=== PATIENT | female | born 1955 | race Caucasian/White ===

== ENCOUNTER 2017-12-01 10:13 | Inpatient (IN) | payer OTHER ==
[~2017-12-01 10:13] MED LIST: Acetaminophen 325 MG Tab PO SCH; Bisacodyl 5 MG Tab PO PRN; Cyclobenzaprine 10 MG Tab PO PRN; HYDROmorphone 0.5 MG/0.5 ML Syringe IVPUSH PRN; Ketorolac 15 MG/ML SDV IVPUSH PRN; Lactated Ringers 1,000 ML IV SCH; Lidocaine 1%/Sod Bicarbonate in NS 8.4% 1 ML Syringe IDERM PRN; Magnesium Hydroxide 400 MG/5 ML Susp 30 ML Cup PO PRN; Naloxone 0.4 MG/ML SDV IVPUSH PRN; Ondansetron 4 MG/2 ML SDV IVPUSH PRN; Pregabalin 25 MG Cap PO SCH; Sennosides 8.6 MG Tab PO PRN; Sodium Chloride 0.9% 10 ML Syringe FLUSH PRN; oxyCODONE ER 10 MG TAB.ER PO SCH
[2017-12-01] MEDS ORDERED: oxyCODONE ER 10 MG TAB.ER PO SCH (10:30)
[2017-12-01] MEDS ORDERED: Pregabalin 25 MG Cap PO SCH (10:30)
[2017-12-01] MEDS ORDERED: Acetaminophen 325 MG Tab PO SCH (10:30)
[2017-12-01] MEDS ORDERED: Midazolam 1 MG/ML 2 ML SDV ONE ×2 (11:08→14:38)
[2017-12-01] MEDS ORDERED: Lidocaine 1% 0 ML ONE ×2 (11:08→11:10)
[2017-12-01] MEDS ORDERED: Bupivacaine 0.75% 30 ML SDV ONE (11:08)
[2017-12-01] MEDS ORDERED: Propofol 200 MG/20 ML SDV ONE ×3 (11:08→16:15)
[2017-12-01] MEDS ORDERED: ceFAZolin 1 GM Vial ONE ×2 (12:14→14:37)
[2017-12-01] MEDS ORDERED: Iodine/Sodium Iodide 2% Tincture 30 ML Bottle ONE (12:14)
--- NOTE | 2017-12-01 12:14 | PCM.PREANE ---
Preanesthetic Assessment - Anesthesia/Transfusion/Family Hx Anesthesia History: Prior Anesthesia Without Reaction Family History of Anesthesia Reaction: No Transfusion History: No Prior Transfusion(s) - Review of Systems General: Other (chronic sinus drainage) Pulmonary: Other (smoker) Gastrointestinal: No Symptoms Neurological: No Symptoms, Numbness (left 2 middle fingers in winter months) - Physical Assessment NPO Status Date: 11/30/17 NPO Status Time: 23:00 Pulse: 70 O2 Sat by Pulse Oximetry: 98 Respiratory Rate: 16 Blood Pressure: 135/90 Vital Signs: Last Vital Signs Temp 37.0 C 12/01/17 10:20 Pulse 70 12/01/17 10:20 Resp 16 12/01/17 10:20 BP 135/90 12/01/17 10:20 Pulse Ox 98 12/01/17 10:20 Height: 1.55 m Weight: 53.524 kg ASA Class: 2 Airway Class: Mallampati = 2 Dentition: Reports: Normal Dentition Thyro-Mental Finger Breadths: 3 Mouth Opening Finger Breadths: 3 ROM/Head Extension: Full Lungs: Clear to Auscultation, Normal Respiratory Effort Cardiovascular: Regular Rate, Regular Rhythm - Lab Values: Laboratory Last Values MRSA (PCR) TNP 11/07/17 12:04 Blood Type A POSITIVE 12/01/17 10:51 Gel Antibody Screen Negative 12/01/17 10:51 - Allergies Allergies/Adverse Reactions: Allergies Allergy/AdvReac Type Severity Reaction Status Date / Time brompheniramine Allergy Tachycardia Verified 11/27/17 13:56 [From Dimetapp (brompheniramine-PPA)] phenylpropanolamine Allergy Tachycardia Verified 11/27/17 13:56 [From Dimetapp (brompheniramine-PPA)] pseudoephedrine Allergy Tachycardia Verified 11/27/17 13:56 [From Sudafed] Sulfa (Sulfonamide Allergy Rash Verified 11/27/17 13:56 Antibiotics) - Blood Blood Available: No Product(s) Available: None - Anesthesia Plan Pre-Op Medication Ordered: None - Acknowledgements Anesthesia Type Planned: Spinal Pt an Appropriate Candidate for the Planned Anesthesia: Yes Alternatives and Risks of Anesthesia Discussed w Pt/Guardian: Yes Pt/Guardian Understands and Agrees with Anesthesia Plan: Yes PreAnesthesia Questionnaire HEENT History: Reports: None Cardiovascular History: Reports: CAD, High Cholesterol Respiratory History: Reports: None Gastrointestinal History: Reports: None Genitourinary History: Reports: None SENIOR CAREGIVER History: Reports: None Musculoskeletal History: Reports: Osteoarthritis Other Musculoskeletal History: Left hip pain, Bilateral broken arms Neurological History: Reports: None Psychiatric History: Reports: None Endocrine/Metabolic History: Reports: Vitamin D Deficiency Hematologic History: Reports: None Immunologic History: Reports: None Oncologic (Cancer) History: Reports: None Dermatologic History: Reports: Other (See Below) Other Dermatologic History: Seborrheic keratosis - Past Surgical History Head Surgeries/Procedures: Reports: Other (See Below) HEENT Surgical History: Reports: Naso-Sinus Surgery Cardiovascular Surgical History: Reports: None Respiratory Surgical History: Reports: None GI Surgical History: Reports: None Female Surgical History: Reports: None Endocrine 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 Tumor Resection Neurological Surgical History: Reports: None Musculoskeletal Surgical History: Reports: Arthroscopic Knee Oncologic Surgical History: Reports: None Dermatological Surgical History: Reports: None - SUBSTANCE USE Smoking Status *Q: Current Every Day Smoker Tobacco Use Within Last Twelve Months: Cigarettes Second Hand Smoke Exposure: No Recreational Drug Use History: No - HOME MEDS Home Medications: Home Meds Acetaminophen [Acetaminophen Extra Strength] 500 mg PO Q6H PRN 11/27/17 [History ] Calcium Carbonate [Oyster Shell Calcium] 500 mg PO BID 11/27/17 [History] Cholecalciferol (Vitamin D3) [Vitamin D3] 5,000 unit PO DAILY 11/27/17 [History] Cyanocobalamin (Vitamin B12) [Vitamin B12] 1,000 mcg PO DAILY 11/27/17 [History] Fish Oil/[place]-3 Fatty Acids [Fish Oil 1,000 MG] 1,000 mg PO BID 11/27/17 [ History] Fluticasone Propionate [Flovent Diskus] 2 spray IH DAILY 11/27/17 [History] Naproxen 500 mg PO BID PRN 11/27/17 [History] Teriparatide [Forteo] 20 unit SUBCUT DAILY 11/27/17 [History] - CURRENT (IN HOUSE) MEDS Current Meds: Current Medications Aspirin (Ecotrin) 325 mg PO BID [facility] Bisacodyl (Dulcolax) 5 mg PO DAILY PRN PRN Reason: Constipation Morphine Sulfate 8 mg/Epinephrine HCl 0.3 mg/Cefuroxime Sodium 750 mg/Ketorolac Tromethamine 30 mg/Sodium Chloride 27.9 ml 0 mg .XX ONETIME ONE Stop: 12/01/17 13:31 Cyclobenzaprine HCl (Flexeril) 10 mg PO TID PRN PRN Reason: Spasms Docusate Sodium (Colace) 100 mg PO BID [facility] Famotidine (Pepcid) 20 mg PO Q12H [facility] Hydromorphone HCl (Dilaudid) 0.2 mg IVPUSH Q2H PRN PRN Reason: breakthrough pain Lactated Ringer's (Ringers, Lactated) 1,000 mls @ 125 mls/hr IV ASDIRECTED [facility] Stop: 12/01/17 23:00 Last Admin: 12/01/17 10:50 Dose: 125 mls/hr Cefazolin Sodium/Dextrose 2 gm (/ Premix) 50 mls @ 100 mls/hr IV Q8H [facility] Stop: 12/01/17 23:44 Ketorolac Tromethamine (Toradol) 15 mg IVPUSH Q6H PRN PRN Reason: Pain Lidocaine/Sodium Bicarbonate (Buffered Lidocaine 1% In Ns 8.4%) 0.25 ml IDERM ONETIME PRN PRN Reason: Prior to IV Start Stop: 12/01/17 18:00 Last Admin: 12/01/17 10:49 Dose: 0.25 ml Magnesium Hydroxide (Milk Of Magnesia) 30 ml PO BID PRN PRN Reason: Constipation Naloxone HCl (Narcan) 0.1 mg IVPUSH Q5M PRN PRN Reason: Oversedation Ondansetron HCl (Zofran) 4 mg IVPUSH Q6H PRN PRN Reason: Nausea/Vomiting Oxycodone/Acetaminophen (Percocet 325-5 Mg) 1 - 2 tab PO Q4H PRN PRN Reason: Pain Senna (Senna) 8.6 mg PO BID PRN PRN Reason: Constipation Sodium Chloride (Saline Flush) 10 ml FLUSH ASDIRECTED PRN PRN Reason: Keep Vein Open Stop: 12/01/17 18:00 Discontinued Medications Acetaminophen (Tylenol) 975 mg PO ONETIME [facility] Stop: 12/01/17 10:31 Acetaminophen (Tylenol) 975 mg PO ONETIME [facility] Stop: 12/01/17 10:31 Bupivacaine HCl (Sensorcaine-Mpf 0.75%) Confirm Administered Dose 30 ml .ROUTE .STK-MED ONE Stop: 12/01/17 11:09 Cefazolin Sodium (Ancef) Confirm Administered Dose 2 gm .ROUTE .STK-MED ONE Stop: 12/01/17 11:11 Lidocaine HCl (Xylocaine-Mpf 1%) Confirm Administered Dose 2 mls @ as directed .ROUTE .STK-MED ONE Stop: 12/01/17 11:09 Lidocaine HCl (Xylocaine-Mpf 1%) Confirm Administered Dose 2 mls @ as directed .ROUTE .STK-MED ONE Stop: 12/01/17 11:11 Midazolam HCl (Versed 1 Mg/Ml) Confirm Administered Dose 2 mg .ROUTE .STK-MED ONE Stop: 12/01/17 11:09 Oxycodone HCl (Oxycontin) 10 mg PO ONETIME [facility] Stop: 12/01/17 10:31 Oxycodone HCl (Oxycontin) 10 mg PO ONETIME [facility] Stop: 12/01/17 10:31 Pregabalin (Lyrica) 50 mg PO ONETIME [facility] Stop: 12/01/17 10:31 Pregabalin (Lyrica) 50 mg PO ONETIME [facility] Stop: 12/01/17 10:31 Propofol (Diprivan 20 Ml) Confirm Administered Dose 600 mg .ROUTE .STK-MED ONE Stop: 12/01/17 11:09
[2017-12-01] MEDS: ceFAZolin 1 GM Vial ONE ×2 (14:38→16:35)
[2017-12-01] MEDS ORDERED: fentaNYL 100 MCG/2 ML SDV ONE (14:38)
[2017-12-01] MEDS: Bupivacaine 0.25% 30 ML SDV ONE ×2 (14:38→16:40)
[2017-12-01] MEDS: Morphine 8 MG, EPINEPHrine 0.3 MG, Cefuroxime 750 MG, Ketorolac 30 MG, Sodium Chloride ... ONE ×10 (14:39→16:39)
[2017-12-01] MEDS: Vancomycin 1 GM SDV ONE ×2 (14:40→16:41)
[2017-12-01] MEDS ORDERED: Ketorolac 30 MG/ML SDV ONE (15:50)
[2017-12-01] MEDS ORDERED: Ondansetron 4 MG/2 ML SDV ONE (15:50)
[2017-12-01] MEDS ORDERED: Meperidine PF 50 MG/ML Syringe IVPUSH PRN (17:13)
[2017-12-01] MEDS ORDERED: fentaNYL 100 MCG/2 ML SDV IVPUSH PRN (17:13)
[2017-12-01] MEDS ORDERED: Ondansetron 4 MG/2 ML SDV IVPUSH PRN (17:13)
--- NOTE | 2017-12-01 17:13 | PCM.POSTAN ---
POST ANESTHESIA ASSESSMENT - MENTAL STATUS Mental Status: Alert, Oriented - VITAL SIGNS Pulse Rate: 64 SaO2: 99 Resp Rate: 18 Blood Pressure: 123/56 Temperature: 36.2 C - RESPIRATORY Respiratory Status: Respiratory Rate WNL, Airway Patent, O2 Saturation Stable - CARDIOVASCULAR CV Status: Pulse Rate WNL, Blood Pressure Stable - GASTROINTESTINAL GI Status: No Symptoms - PAIN Pain Score: 0 - POST OP HYDRATION Hydration Status: Adequate & Stable
--- NOTE | 2017-12-01 17:43 | CR ---
Pelvis and left hip: AP view of the pelvis was obtained as well as lateral view of the left hip. Comparison: No prior pelvis or left hip exam. Left hip prosthesis is seen. Components are aligned. Underlying bony structures are intact. Joint space within the right hip is preserved. Sacroiliac joints appear within normal limits. Calcifications are seen within the pelvis which are compatible with phleboliths. Soft tissue air is noted around the left hip. Impression: 1. Recently placed left hip prosthesis. No additional abnormality is seen other than incidental findings. Diagnostic code #2
[2017-12-01] MEDS ORDERED: ceFAZolin 2 GM in Premix Bag 1 BAG IV SCH (20:15)
[2017-12-01] MEDS: Docusate Sodium 100 MG Cap PO SCH (21:10)
[2017-12-01] MEDS: Calcium Carbonate 500 MG Tab.Chew PO SCH (21:10)
[2017-12-01] MEDS: Famotidine 20 MG Tab PO SCH (21:10)
[2017-12-01] MEDS: ceFAZolin 2 GM in Premix Bag 1 BAG IV SCH (21:30)
[2017-12-01] MEDS: Acetaminophen/oxyCODONE 325-5 MG Tab PO PRN (21:45)
[2017-12-02] MEDS: Docusate Sodium 100 MG Cap PO SCH ×2 (01:28→09:04)
[2017-12-02] MEDS: Morphine 8 MG, EPINEPHrine 0.3 MG, Cefuroxime 750 MG, Ketorolac 30 MG, Sodium Chloride ... ONE ×5 (01:29)
[2017-12-02] MEDS: ceFAZolin 2 GM in Premix Bag 1 BAG IV SCH (06:10)
[2017-12-02] MEDS: Acetaminophen/oxyCODONE 325-5 MG Tab PO PRN (06:11)
--- NOTE | 2017-12-02 07:38 | PCM.CONSN ---
- General Info Date of Service: 12/01/17 Admission Dx/Problem (Free Text): 62 year old female s/p left hip arthroplasty, Day 0; PMH of left hip osteoarthritis. Is a current smoker since 23 years old. Has no complaints post op. medical service has been asked to oversee her medical needs. Functional Status: Reports: Pain Controlled, Tolerating Diet, Urinating - Review of Systems General: Reports: No Symptoms HEENT: Reports: No Symptoms Pulmonary: Reports: No Symptoms Cardiovascular: Reports: No Symptoms Gastrointestinal: Reports: No Symptoms Genitourinary: Reports: No Symptoms Musculoskeletal: Reports: No Symptoms Skin: Reports: No Symptoms Neurological: Reports: No Symptoms, Change in Speech - Patient Data Vitals - Most Recent: Last Vital Signs Temp 36.8 C 12/02/17 04:18 Pulse 60 12/02/17 04:18 Resp 16 12/02/17 04:18 BP 110/49 L 12/02/17 04:18 Pulse Ox 95 12/02/17 04:18 Weight - Most Recent: 56.744 kg I&O - Last 24 Hours: Intake & Output 12/01/17 12/02/17 12/02/17 22:59 06:59 14:59 Intake Total 100 1400 Output Total 250 2125 Balance -150 -725 Lab Results Last 24 Hours: Laboratory Results - last 24 hr 12/01/17 12/02/17 Range/Units 10:51 05:52 WBC 7.39 (3.98-10.04) K/mm3 RBC 3.98 (3.98-5.22) M/mm3 Hgb 12.3 (11.2-15.7) gm/L Hct 37.4 (34.1-44.9) % MCV 94.0 (79.4-94.8) fl MCH 30.9 (25.6-32.2) pg MCHC 32.9 (32.2-35.5) g/dl RDW Std Deviation 47.8 H (36.4-46.3) fL Plt Count 279 (182-369) K/mm3 MPV 9.6 (9.4-12.3) fl Blood Type A POSITIVE Gel Antibody Screen Negative Med Orders - Current: Current Medications Bisacodyl (Dulcolax) 5 mg PO DAILY PRN PRN Reason: Constipation Calcium Carbonate/Glycine (Tums) 500 mg PO BID [facility] Last Admin: 12/01/17 21:10 Dose: 500 mg Cholecalciferol (Vitamin D3) 5,000 unit PO DAILY [facility] Cyanocobalamin (Vitamin B12) 1,000 mcg PO DAILY [facility] Cyclobenzaprine HCl (Flexeril) 10 mg PO TID PRN PRN Reason: Spasms Docusate Sodium (Colace) 100 mg PO BID [facility] Last Admin: 12/02/17 01:28 Dose: Not Given Famotidine (Pepcid) 20 mg PO Q12H [facility] Last Admin: 12/01/17 21:10 Dose: 20 mg Hydromorphone HCl (Dilaudid) 0.2 mg IVPUSH Q2H PRN PRN Reason: breakthrough pain Cefazolin Sodium/Dextrose 2 gm (/ Premix) 50 mls @ 100 mls/hr IV Q8H [facility] Stop: 12/02/17 14:29 Last Admin: 12/02/17 06:10 Dose: 100 mls/hr Ketorolac Tromethamine (Toradol) 15 mg IVPUSH Q6H PRN PRN Reason: Pain Magnesium Hydroxide (Milk Of Magnesia) 30 ml PO BID PRN PRN Reason: Constipation Mometasone Furoate (Asmanex Hfa 200mcg) 0 gm INH BID [facility] Ondansetron HCl (Zofran) 4 mg IVPUSH Q6H PRN PRN Reason: Nausea/Vomiting Ondansetron HCl (Zofran) 4 mg IVPUSH ONETIME PRN PRN Reason: Nausea/Vomiting Oxycodone/Acetaminophen (Percocet 325-5 Mg) 1 - 2 tab PO Q4H PRN PRN Reason: Pain Last Admin: 12/02/17 06:11 Dose: 2 tab Rivaroxaban (Xarelto) 10 mg PO DAILY [facility] Senna (Senna) 8.6 mg PO BID PRN PRN Reason: Constipation Discontinued Medications Acetaminophen (Tylenol) 975 mg PO ONETIME [facility] Stop: 12/01/17 10:31 Last Admin: 12/01/17 14:54 Dose: 975 mg Acetaminophen (Tylenol) 975 mg PO ONETIME [facility] Stop: 12/01/17 10:31 Aspirin (Ecotrin) 325 mg PO BID [facility] Bupivacaine HCl (Sensorcaine-Mpf 0.75%) Confirm Administered Dose 30 ml .ROUTE .STK-MED ONE Stop: 12/01/17 11:09 Bupivacaine HCl (Marcaine 0.25%) Confirm Administered Dose 30 ml .ROUTE .STK- MED ONE Stop: 12/01/17 12:15 Last Admin: 12/01/17 16:40 Dose: 30 ml Cefazolin Sodium (Ancef) Confirm Administered Dose 2 gm .ROUTE .STK-MED ONE Stop: 12/01/17 11:11 Last Admin: 12/01/17 16:35 Dose: 2 gm Cefazolin Sodium (Ancef) Confirm Administered Dose 2 gm .ROUTE .STK-MED ONE Stop: 12/01/17 12:15 Cefazolin Sodium (Ancef) Confirm Administered Dose 2 gm .ROUTE .STK-MED ONE Stop: 12/01/17 14:38 Morphine Sulfate 8 mg/Epinephrine HCl 0.3 mg/Cefuroxime Sodium 750 mg/Ketorolac Tromethamine 30 mg/Sodium Chloride 27.9 ml 0 mg .XX ONETIME ONE Stop: 12/01/17 13:31 Last Admin: 12/02/17 01:29 Dose: Not Given Fentanyl (Sublimaze) Confirm Administered Dose 100 mcg .ROUTE .STK-MED ONE Stop: 12/01/17 14:39 Fentanyl (Sublimaze) 50 mcg IVPUSH Q5M PRN PRN Reason: Pain Lactated Ringer's (Ringers, Lactated) 1,000 mls @ 125 mls/hr IV ASDIRECTED [facility] Stop: 12/01/17 23:00 Last Admin: 12/01/17 10:50 Dose: 125 mls/hr Cefazolin Sodium/Dextrose 2 gm (/ Premix) 50 mls @ 100 mls/hr IV Q8H [facility] Stop: 12/02/17 12:44 Last Admin: 12/02/17 01:31 Dose: Not Given Lidocaine HCl (Xylocaine-Mpf 1%) Confirm Administered Dose 0 mls @ as directed .ROUTE .STK-MED ONE Stop: 12/01/17 11:09 Lidocaine HCl (Xylocaine-Mpf 1%) Confirm Administered Dose 0 mls @ as directed .ROUTE .STK-MED ONE Stop: 12/01/17 11:11 Iodine (Iodine 2% Mild Tincture) Confirm Administered Dose 30 ml .ROUTE .STK- MED ONE Stop: 12/01/17 12:15 Last Admin: 12/01/17 16:31 Dose: 18 ml Ketorolac Tromethamine (Toradol) Confirm Administered Dose 30 mg .ROUTE .STK- MED ONE Stop: 12/01/17 15:51 Lidocaine/Sodium Bicarbonate (Buffered Lidocaine 1% In Ns 8.4%) 0.25 ml IDERM ONETIME PRN PRN Reason: Prior to IV Start Stop: 12/01/17 18:00 Last Admin: 12/01/17 10:49 Dose: 0.25 ml Meperidine HCl (Demerol) 12.5 mg IVPUSH ONETIME PRN PRN Reason: Shivering Midazolam HCl (Versed 1 Mg/Ml) Confirm Administered Dose 2 mg .ROUTE .STK-MED ONE Stop: 12/01/17 11:09 Midazolam HCl (Versed 1 Mg/Ml) Confirm Administered Dose 2 mg .ROUTE .STK-MED ONE Stop: 12/01/17 14:39 Naloxone HCl (Narcan) 0.1 mg IVPUSH Q5M PRN PRN Reason: Oversedation Non-Formulary Medication (Teriparatide [Forteo]) 20 unit SUBCUT DAILY [facility] Ondansetron HCl (Zofran) Confirm Administered Dose 4 mg .ROUTE .STK-MED ONE Stop: 12/01/17 15:51 Oxycodone HCl (Oxycontin) 10 mg PO ONETIME [facility] Stop: 12/01/17 10:31 Last Admin: 12/01/17 14:54 Dose: 10 mg Oxycodone HCl (Oxycontin) 10 mg PO ONETIME [facility] Stop: 12/01/17 10:31 Pregabalin (Lyrica) 50 mg PO ONETIME [facility] Stop: 12/01/17 10:31 Last Admin: 12/01/17 14:53 Dose: 50 mg Pregabalin (Lyrica) 50 mg PO ONETIME [facility] Stop: 12/01/17 10:31 Propofol (Diprivan 20 Ml) Confirm Administered Dose 600 mg .ROUTE .STK-MED ONE Stop: 12/01/17 11:09 Propofol (Diprivan 20 Ml) Confirm Administered Dose 400 mg .ROUTE .STK-MED ONE Stop: 12/01/17 14:38 Propofol (Diprivan 20 Ml) Confirm Administered Dose 200 mg .ROUTE .STK-MED ONE Stop: 12/01/17 16:16 Sodium Chloride (Saline Flush) 10 ml FLUSH ASDIRECTED PRN PRN Reason: Keep Vein Open Stop: 12/01/17 18:00 Tranexamic Acid (Cyklokapron) Confirm Administered Dose 1,000 mg .ROUTE .STK- MED ONE Stop: 12/01/17 12:15 Last Admin: 12/01/17 16:41 Dose: 1,000 mg Vancomycin HCl (Vancomycin) Confirm Administered Dose 1 gm .ROUTE .STK-MED ONE Stop: 12/01/17 12:15 Last Admin: 12/01/17 16:41 Dose: 1 gm - Exam Quality Assessment: Urine Catheter, DVT Prophylaxis General: Alert, Oriented, Cooperative, No Acute Distress HEENT: Pupils Equal, Pupils Reactive, EOMI Neck: Trachea Midline, No JVD Lungs: Clear to Auscultation, Normal Respiratory Effort Cardiovascular: Regular Rate, Regular Rhythm GI/Abdominal Exam: Normal Bowel Sounds, Soft, Non-Tender, No Organomegaly, No Distention (Female) Exam: Deferred Back Exam: Normal Inspection Extremities: Normal Inspection, Normal Capillary Refill Skin: Warm, Dry Wound/Incisions: Dressing Dry and Intact Neurological: No New Focal Deficit Psy/Mental Status: Alert, Normal Affect, Normal Mood Consult PN Assessment/Plan Procedures: Procedures DXA BONE DENSITY AXIAL (08/26/17) MR-STAPH DNA AMP PROBE (08/26/17) Problem List Initiated/Reviewed/Updated: Yes Plan: Impression: S/P left hip arthroplasty; POD 0 Current smoker Chronic S/p Pituitary resection HLD CAD Vitamin D deficiency Plan: Daily labs Home meds Pain control per primary service DVT prophylaxis Consult post op PT/OT DC 24-48 hours Time spent 20 minutes
[2017-12-02] MEDS: Mometasone Furoate HFA 200 mcg/Puff 13 GM Inhaler INH SCH ×2 (08:01→10:28)
--- NOTE | 2017-12-02 08:41 | PCM.SURGPN ---
- General Info Date of Service: 12/02/17 POD#: 1 Functional Status: Reports: Pain Controlled, Tolerating Diet, Ambulating, Urinating, Incentive Spirometry, Other (The pt states she is doing well.) - Patient Data Vitals - Most Recent: Last Vital Signs Temp 98.2 F 12/02/17 04:18 Pulse 60 12/02/17 04:18 Resp 16 12/02/17 04:18 BP 110/49 L 12/02/17 04:18 Pulse Ox 95 12/02/17 04:18 Weight - Most Recent: 125 lb 1.6 oz I&O - Last 24 Hours: Intake & Output 12/01/17 12/02/17 12/02/17 22:59 06:59 14:59 Intake Total 340 1400 Output Total 250 2125 Balance 90 -725 Lab Results Last 24 Hrs: Laboratory Results - last 24 hr 12/01/17 12/02/17 12/02/17 Range/Units 10:51 05:52 05:52 WBC 7.39 (3.98-10.04) K/mm3 RBC 3.98 (3.98-5.22) M/mm3 Hgb 12.3 (11.2-15.7) gm/L Hct 37.4 (34.1-44.9) % MCV 94.0 (79.4-94.8) fl MCH 30.9 (25.6-32.2) pg MCHC 32.9 (32.2-35.5) g/dl RDW Std Deviation 47.8 H (36.4-46.3) fL Plt Count 279 (182-369) K/mm3 MPV 9.6 (9.4-12.3) fl Sodium 141 (136-145) mEq/L Potassium 4.0 (3.5-5.1) mEq/L Chloride 107 (98-107) mEq/L Carbon Dioxide 28 (21-32) mEq/L Anion Gap 10.0 (5-15) BUN 13 (7-18) mg/dL Creatinine 1.0 (0.55-1.02) mg/dL Est Cr Clr Drug Dosing 44.02 mL/min Estimated GFR (MDRD) 56 (>60) mL/min BUN/Creatinine Ratio 13.0 L (14-18) Glucose 101 (80-115) mg/dL Calcium 8.9 (8.5-10.1) mg/dL Total Bilirubin 0.4 (0.2-1.0) mg/dL AST 20 (15-37) U/L ALT 22 (14-59) U/L Alkaline Phosphatase 77 (46-116) U/L Total Protein 5.5 L (6.4-8.2) g/dl Albumin 3.0 L (3.4-5.0) g/dl Globulin 2.5 gm/dL Albumin/Globulin Ratio 1.2 (1-2) Blood Type A POSITIVE Gel Antibody Screen Negative Med Orders - Current: Current Medications Bisacodyl (Dulcolax) 5 mg PO DAILY PRN PRN Reason: Constipation Calcium Carbonate/Glycine (Tums) 500 mg PO BID [facility] Last Admin: 12/01/17 21:10 Dose: 500 mg Cholecalciferol (Vitamin D3) 5,000 unit PO DAILY [facility] Cyanocobalamin (Vitamin B12) 1,000 mcg PO DAILY [facility] Cyclobenzaprine HCl (Flexeril) 10 mg PO TID PRN PRN Reason: Spasms Docusate Sodium (Colace) 100 mg PO BID [facility] Last Admin: 12/02/17 01:28 Dose: Not Given Famotidine (Pepcid) 20 mg PO Q12H [facility] Last Admin: 12/01/17 21:10 Dose: 20 mg Hydromorphone HCl (Dilaudid) 0.2 mg IVPUSH Q2H PRN PRN Reason: breakthrough pain Cefazolin Sodium/Dextrose 2 gm (/ Premix) 50 mls @ 100 mls/hr IV Q8H [facility] Stop: 12/02/17 14:29 Last Admin: 12/02/17 06:10 Dose: 100 mls/hr Ketorolac Tromethamine (Toradol) 15 mg IVPUSH Q6H PRN PRN Reason: Pain Magnesium Hydroxide (Milk Of Magnesia) 30 ml PO BID PRN PRN Reason: Constipation Mometasone Furoate (Asmanex Hfa 200mcg) 0 gm INH BID [facility] Last Admin: 12/02/17 08:01 Dose: Not Given Ondansetron HCl (Zofran) 4 mg IVPUSH Q6H PRN PRN Reason: Nausea/Vomiting Ondansetron HCl (Zofran) 4 mg IVPUSH ONETIME PRN PRN Reason: Nausea/Vomiting Oxycodone/Acetaminophen (Percocet 325-5 Mg) 1 - 2 tab PO Q4H PRN PRN Reason: Pain Last Admin: 12/02/17 06:11 Dose: 2 tab Rivaroxaban (Xarelto) 10 mg PO DAILY [facility] Senna (Senna) 8.6 mg PO BID PRN PRN Reason: Constipation Discontinued Medications Acetaminophen (Tylenol) 975 mg PO ONETIME [facility] Stop: 12/01/17 10:31 Last Admin: 12/01/17 14:54 Dose: 975 mg Acetaminophen (Tylenol) 975 mg PO ONETIME [facility] Stop: 12/01/17 10:31 Aspirin (Ecotrin) 325 mg PO BID [facility] Bupivacaine HCl (Sensorcaine-Mpf 0.75%) Confirm Administered Dose 30 ml .ROUTE .STK-MED ONE Stop: 12/01/17 11:09 Bupivacaine HCl (Marcaine 0.25%) Confirm Administered Dose 30 ml .ROUTE .STK- MED ONE Stop: 12/01/17 12:15 Last Admin: 12/01/17 16:40 Dose: 30 ml Cefazolin Sodium (Ancef) Confirm Administered Dose 2 gm .ROUTE .STK-MED ONE Stop: 12/01/17 11:11 Last Admin: 12/01/17 16:35 Dose: 2 gm Cefazolin Sodium (Ancef) Confirm Administered Dose 2 gm .ROUTE .STK-MED ONE Stop: 12/01/17 12:15 Cefazolin Sodium (Ancef) Confirm Administered Dose 2 gm .ROUTE .STK-MED ONE Stop: 12/01/17 14:38 Morphine Sulfate 8 mg/Epinephrine HCl 0.3 mg/Cefuroxime Sodium 750 mg/Ketorolac Tromethamine 30 mg/Sodium Chloride 27.9 ml 0 mg .XX ONETIME ONE Stop: 12/01/17 13:31 Last Admin: 12/02/17 01:29 Dose: Not Given Fentanyl (Sublimaze) Confirm Administered Dose 100 mcg .ROUTE .STK-MED ONE Stop: 12/01/17 14:39 Fentanyl (Sublimaze) 50 mcg IVPUSH Q5M PRN PRN Reason: Pain Lactated Ringer's (Ringers, Lactated) 1,000 mls @ 125 mls/hr IV ASDIRECTED [facility] Stop: 12/01/17 23:00 Last Admin: 12/01/17 10:50 Dose: 125 mls/hr Cefazolin Sodium/Dextrose 2 gm (/ Premix) 50 mls @ 100 mls/hr IV Q8H [facility] Stop: 12/02/17 12:44 Last Admin: 12/02/17 01:31 Dose: Not Given Lidocaine HCl (Xylocaine-Mpf 1%) Confirm Administered Dose 0 mls @ as directed .ROUTE .STK-MED ONE Stop: 12/01/17 11:09 Lidocaine HCl (Xylocaine-Mpf 1%) Confirm Administered Dose 0 mls @ as directed .ROUTE .STK-MED ONE Stop: 12/01/17 11:11 Iodine (Iodine 2% Mild Tincture) Confirm Administered Dose 30 ml .ROUTE .STK- MED ONE Stop: 12/01/17 12:15 Last Admin: 12/01/17 16:31 Dose: 18 ml Ketorolac Tromethamine (Toradol) Confirm Administered Dose 30 mg .ROUTE .STK- MED ONE Stop: 12/01/17 15:51 Lidocaine/Sodium Bicarbonate (Buffered Lidocaine 1% In Ns 8.4%) 0.25 ml IDERM ONETIME PRN PRN Reason: Prior to IV Start Stop: 12/01/17 18:00 Last Admin: 12/01/17 10:49 Dose: 0.25 ml Meperidine HCl (Demerol) 12.5 mg IVPUSH ONETIME PRN PRN Reason: Shivering Midazolam HCl (Versed 1 Mg/Ml) Confirm Administered Dose 2 mg .ROUTE .STK-MED ONE Stop: 12/01/17 11:09 Midazolam HCl (Versed 1 Mg/Ml) Confirm Administered Dose 2 mg .ROUTE .STK-MED ONE Stop: 12/01/17 14:39 Naloxone HCl (Narcan) 0.1 mg IVPUSH Q5M PRN PRN Reason: Oversedation Non-Formulary Medication (Teriparatide [Forteo]) 20 unit SUBCUT DAILY [facility] Ondansetron HCl (Zofran) Confirm Administered Dose 4 mg .ROUTE .STK-MED ONE Stop: 12/01/17 15:51 Oxycodone HCl (Oxycontin) 10 mg PO ONETIME [facility] Stop: 12/01/17 10:31 Last Admin: 12/01/17 14:54 Dose: 10 mg Oxycodone HCl (Oxycontin) 10 mg PO ONETIME [facility] Stop: 12/01/17 10:31 Pregabalin (Lyrica) 50 mg PO ONETIME [facility] Stop: 12/01/17 10:31 Last Admin: 12/01/17 14:53 Dose: 50 mg Pregabalin (Lyrica) 50 mg PO ONETIME [facility] Stop: 12/01/17 10:31 Propofol (Diprivan 20 Ml) Confirm Administered Dose 600 mg .ROUTE .STK-MED ONE Stop: 12/01/17 11:09 Propofol (Diprivan 20 Ml) Confirm Administered Dose 400 mg .ROUTE .STK-MED ONE Stop: 12/01/17 14:38 Propofol (Diprivan 20 Ml) Confirm Administered Dose 200 mg .ROUTE .STK-MED ONE Stop: 12/01/17 16:16 Sodium Chloride (Saline Flush) 10 ml FLUSH ASDIRECTED PRN PRN Reason: Keep Vein Open Stop: 12/01/17 18:00 Tranexamic Acid (Cyklokapron) Confirm Administered Dose 1,000 mg .ROUTE .STK- MED ONE Stop: 12/01/17 12:15 Last Admin: 12/01/17 16:41 Dose: 1,000 mg Vancomycin HCl (Vancomycin) Confirm Administered Dose 1 gm .ROUTE .STK-MED ONE Stop: 12/01/17 12:15 Last Admin: 12/01/17 16:41 Dose: 1 gm - Exam Wound/Incisions: Dressing Dry and Intact General: Alert, Cooperative, No Acute Distress Lungs: Normal Respiratory Effort Extremities: Other (Left thigh soft, nontender. NVS intact for LLE. Homans negative for LLE.) - Problem List Review Problem List Initiated/Reviewed/Updated: Yes - My Orders Last 24 Hours: Active Orders 24 hr Category Date Time Status Communication Order [RC] ROUTINE Care 12/01/17 17:13 Inactive Cooling Warming Measures [RC] ASDIRECTED Care 12/01/17 17:13 Inactive Notify Provider [RC] ASDIRECTED Care 12/01/17 17:13 Inactive Oxygen Therapy [RC] ASDIRECTED Care 12/01/17 17:13 Inactive Pulse Oximetry [RC] ASDIRECTED Care 12/01/17 17:13 Active Ready for Discharge [RC] PER UNIT ROUTINE Care 12/02/17 07:32 Active Vital Signs [RC] Q15M Care 12/01/17 17:13 Inactive Consult to Physician [CONS] Routine Cons 12/01/17 18:22 Active Regular Diet [DIET] Diet 12/01/17 Lunch Active Calcium Carbonate [Tums] Med 12/01/17 21:00 Active 500 mg PO BID Cholecalciferol (Vitamin D3) [Vitamin D3] Med 12/02/17 09:00 Active 5,000 unit PO DAILY Cyanocobalamin (Vitamin B12) [Vitamin B12] Med 12/02/17 09:00 Active 1,000 mcg PO DAILY Docusate Sodium [Colace] Med 12/01/17 09:00 Active 100 mg PO BID Famotidine [Pepcid] Med 12/01/17 21:00 Active 20 mg PO Q12H Mometasone Furoate 200mcg [Asmanex HFA 200mcg] Med 12/01/17 21:00 Active 0 gm INH BID Ondansetron [Zofran] Med 12/01/17 17:13 Active 4 mg IVPUSH ONETIME PRN Rivaroxaban [Xarelto] Med 12/02/17 09:00 Active 10 mg PO DAILY ceFAZolin [Ancef] 2 gm Med 12/01/17 22:00 Active Premix Bag 1 bag IV Q8H Weight bearing status [OM.PC] Routine Oth 12/01/17 17:11 Ordered Medication Orders Bisacodyl (Dulcolax) 5 mg PO DAILY PRN PRN Reason: Constipation Calcium Carbonate/Glycine (Tums) 500 mg PO BID [facility] Last Admin: 12/01/17 21:10 Dose: 500 mg Cholecalciferol (Vitamin D3) 5,000 unit PO DAILY [facility] Cyanocobalamin (Vitamin B12) 1,000 mcg PO DAILY [facility] Cyclobenzaprine HCl (Flexeril) 10 mg PO TID PRN PRN Reason: Spasms Docusate Sodium (Colace) 100 mg PO BID [facility] Last Admin: 12/02/17 01:28 Dose: Admin: 12/01/17 21:10 Dose: 100 mg Famotidine (Pepcid) 20 mg PO Q12H [facility] Last Admin: 12/01/17 21:10 Dose: 20 mg Hydromorphone HCl (Dilaudid) 0.2 mg IVPUSH Q2H PRN PRN Reason: breakthrough pain Cefazolin Sodium/Dextrose 2 gm (/ Premix) 50 mls @ 100 mls/hr IV Q8H [facility] Stop: 12/02/17 14:29 Last Admin: 12/02/17 06:10 Dose: 100 mls/hr Infusion: 12/01/17 22:00 Dose: 100 mls/hr Admin: 12/01/17 21:30 Dose: 100 mls/hr Ketorolac Tromethamine (Toradol) 15 mg IVPUSH Q6H PRN PRN Reason: Pain Magnesium Hydroxide (Milk Of Magnesia) 30 ml PO BID PRN PRN Reason: Constipation Mometasone Furoate (Asmanex Hfa 200mcg) 0 gm INH BID [facility] Last Admin: 12/02/17 08:01 Dose: Not Given Ondansetron HCl (Zofran) 4 mg IVPUSH Q6H PRN PRN Reason: Nausea/Vomiting Ondansetron HCl (Zofran) 4 mg IVPUSH ONETIME PRN PRN Reason: Nausea/Vomiting Oxycodone/Acetaminophen (Percocet 325-5 Mg) 1 - 2 tab PO Q4H PRN PRN Reason: Pain Last Admin: 12/02/17 06:11 Dose: 2 tab Admin: 12/01/17 21:45 Dose: 2 tab Rivaroxaban (Xarelto) 10 mg PO DAILY [facility] Senna (Senna) 8.6 mg PO BID PRN PRN Reason: Constipation - Assessment Assessment (Free Text/Narrative):: POD#1 - left AYLIN - Plan Plan (Free Text/Narrative):: 1. Hgb 12.3. 2. Xarelto for VTE prophylaxis. SCDs, TEDs. 3. Likely d/c to home today. The pt will have the assistance of her family. The pt's case was discussed with Dr. Lockett.
[2017-12-02] MEDS ORDERED: Cyanocobalamin (Vitamin B12) 1,000 MCG Tab PO SCH (09:00)
[2017-12-02] MEDS ORDERED: TERIPARATIDE SUBCUT SCH (09:00)
[2017-12-02] MEDS ORDERED: Rivaroxaban 10 MG Tab PO SCH (09:00)
[2017-12-02] MEDS ORDERED: Cholecalciferol (Vitamin D3) 5,000 UNIT Tab PO SCH (09:00)
[2017-12-02] MEDS ORDERED: Aspirin 325 MG Tab.EC PO SCH (09:00)
[2017-12-02] MEDS: Famotidine 20 MG Tab PO SCH (09:03)
[2017-12-02] MEDS: Calcium Carbonate 500 MG Tab.Chew PO SCH (09:04)
--- NOTE | 2017-12-02 09:12 | PCM48HPAN ---
Post Anesthesia Note - EVALUATION WITHIN 48HRS OF ANESTHETIC Vital Signs in Normal Range: Yes Patient Participated in Evaluation: Yes Respiratory Function Stable: Yes Airway Patent: Yes Cardiovascular Function Stable: Yes Hydration Status Stable: Yes Pain Control Satisfactory: Yes Nausea and Vomiting Control Satisfactory: Yes Mental Status Recovered: Yes
[2017-12-02] MEDS ORDERED: Pneumococcal 13-Valent Conjugate Vaccine 0.5 ML Syringe IM ONE (09:46)
--- NOTE | 2017-12-02 12:34 | PCM.CONSN ---
- General Info Date of Service: 12/02/17 Admission Dx/Problem (Free Text): 62 year old female s/p left hip arthroplasty, Day 0; PMH of left hip osteoarthritis. Is a current smoker since 23 years old. Has no complaints post op. medical service has been asked to oversee her medical needs. Subjective Update: In to see Nazanin today- post-op day 1. She is lying in bed. Overall she is doing quite well. She has no complaints. She has been sleeping well. Good appetite. Urinating. Pain is controlled. No fever, chills, nausea, vomiting, diarrhea, CP, or SOB. Incentive Spirometry. No concerns from nursing. Will be DC d back home today after PT/OT consults. Functional Status: Reports: Pain Controlled, Tolerating Diet, Ambulating, Urinating - Review of Systems General: Reports: No Symptoms. Denies: Fever, Chills HEENT: Reports: No Symptoms Pulmonary: Reports: No Symptoms Cardiovascular: Reports: No Symptoms Gastrointestinal: Reports: No Symptoms Genitourinary: Reports: No Symptoms. Denies: Dysuria, Frequency, Burning, Pain , Urgency Musculoskeletal: Reports: No Symptoms Skin: Reports: No Symptoms Neurological: Reports: No Symptoms Psychiatric: Reports: No Symptoms - Patient Data Vitals - Most Recent: Last Vital Signs Temp 98.8 F 12/02/17 08:03 Pulse 52 L 12/02/17 08:03 Resp 18 12/02/17 08:03 BP 130/82 12/02/17 08:03 Pulse Ox 95 12/02/17 08:03 Weight - Most Recent: 125 lb 1.6 oz I&O - Last 24 Hours: Intake & Output 12/01/17 12/02/17 12/02/17 22:59 06:59 14:59 Intake Total 340 1400 270 Output Total 250 2125 Balance 90 -725 270 Lab Results Last 24 Hours: Laboratory Results - last 24 hr 12/02/17 12/02/17 Range/Units 05:52 05:52 WBC 7.39 (3.98-10.04) K/mm3 RBC 3.98 (3.98-5.22) M/mm3 Hgb 12.3 (11.2-15.7) gm/L Hct 37.4 (34.1-44.9) % MCV 94.0 (79.4-94.8) fl MCH 30.9 (25.6-32.2) pg MCHC 32.9 (32.2-35.5) g/dl RDW Std Deviation 47.8 H (36.4-46.3) fL Plt Count 279 (182-369) K/mm3 MPV 9.6 (9.4-12.3) fl Sodium 141 (136-145) mEq/L Potassium 4.0 (3.5-5.1) mEq/L Chloride 107 (98-107) mEq/L Carbon Dioxide 28 (21-32) mEq/L Anion Gap 10.0 (5-15) BUN 13 (7-18) mg/dL Creatinine 1.0 (0.55-1.02) mg/dL Est Cr Clr Drug Dosing 44.02 mL/min Estimated GFR (MDRD) 56 (>60) mL/min BUN/Creatinine Ratio 13.0 L (14-18) Glucose 101 (80-115) mg/dL Calcium 8.9 (8.5-10.1) mg/dL Total Bilirubin 0.4 (0.2-1.0) mg/dL AST 20 (15-37) U/L ALT 22 (14-59) U/L Alkaline Phosphatase 77 (46-116) U/L Total Protein 5.5 L (6.4-8.2) g/dl Albumin 3.0 L (3.4-5.0) g/dl Globulin 2.5 gm/dL Albumin/Globulin Ratio 1.2 (1-2) Med Orders - Current: Current Medications Bisacodyl (Dulcolax) 5 mg PO DAILY PRN PRN Reason: Constipation Calcium Carbonate/Glycine (Tums) 500 mg PO BID [facility] Last Admin: 12/02/17 09:04 Dose: 500 mg Cholecalciferol (Vitamin D3) 5,000 unit PO DAILY [facility] Last Admin: 12/02/17 09:02 Dose: 5,000 unit Cyanocobalamin (Vitamin B12) 1,000 mcg PO DAILY [facility] Last Admin: 12/02/17 09:03 Dose: 1,000 mcg Cyclobenzaprine HCl (Flexeril) 10 mg PO TID PRN PRN Reason: Spasms Docusate Sodium (Colace) 100 mg PO BID [facility] Last Admin: 12/02/17 09:04 Dose: 100 mg Famotidine (Pepcid) 20 mg PO Q12H [facility] Last Admin: 12/02/17 09:03 Dose: 20 mg Hydromorphone HCl (Dilaudid) 0.2 mg IVPUSH Q2H PRN PRN Reason: breakthrough pain Cefazolin Sodium/Dextrose 2 gm (/ Premix) 50 mls @ 100 mls/hr IV Q8H [facility] Stop: 12/02/17 14:29 Last Admin: 12/02/17 06:10 Dose: 100 mls/hr Ketorolac Tromethamine (Toradol) 15 mg IVPUSH Q6H PRN PRN Reason: Pain Magnesium Hydroxide (Milk Of Magnesia) 30 ml PO BID PRN PRN Reason: Constipation Mometasone Furoate (Asmanex Hfa 200mcg) 0 gm INH BID [facility] Last Admin: 12/02/17 10:28 Dose: Not Given Ondansetron HCl (Zofran) 4 mg IVPUSH Q6H PRN PRN Reason: Nausea/Vomiting Ondansetron HCl (Zofran) 4 mg IVPUSH ONETIME PRN PRN Reason: Nausea/Vomiting Oxycodone/Acetaminophen (Percocet 325-5 Mg) 1 - 2 tab PO Q4H PRN PRN Reason: Pain Last Admin: 12/02/17 06:11 Dose: 2 tab Rivaroxaban (Xarelto) 10 mg PO DAILY [facility] Last Admin: 12/02/17 09:04 Dose: 10 mg Senna (Senna) 8.6 mg PO BID PRN PRN Reason: Constipation Discontinued Medications Acetaminophen (Tylenol) 975 mg PO ONETIME [facility] Stop: 12/01/17 10:31 Last Admin: 12/01/17 14:54 Dose: 975 mg Acetaminophen (Tylenol) 975 mg PO ONETIME [facility] Stop: 12/01/17 10:31 Aspirin (Ecotrin) 325 mg PO BID [facility] Bupivacaine HCl (Sensorcaine-Mpf 0.75%) Confirm Administered Dose 30 ml .ROUTE .STK-MED ONE Stop: 12/01/17 11:09 Bupivacaine HCl (Marcaine 0.25%) Confirm Administered Dose 30 ml .ROUTE .STK- MED ONE Stop: 12/01/17 12:15 Last Admin: 12/01/17 16:40 Dose: 30 ml Cefazolin Sodium (Ancef) Confirm Administered Dose 2 gm .ROUTE .STK-MED [facility] Stop: 12/01/17 11:11 Last Admin: 12/01/17 16:35 Dose: 2 gm Cefazolin Sodium (Ancef) Confirm Administered Dose 2 gm .ROUTE .STK-MED ONE Stop: 12/01/17 12:15 Cefazolin Sodium (Ancef) Confirm Administered Dose 2 gm .ROUTE .STK-MED [facility] Stop: 12/01/17 14:38 Morphine Sulfate 8 mg/Epinephrine HCl 0.3 mg/Cefuroxime Sodium 750 mg/Ketorolac Tromethamine 30 mg/Sodium Chloride 27.9 ml 0 mg .XX ONETIME ONE Stop: 12/01/17 13:31 Last Admin: 12/02/17 01:29 Dose: Not Given Fentanyl (Sublimaze) Confirm Administered Dose 100 mcg .ROUTE .ST-MED ONE Stop: 12/01/17 14:39 Fentanyl (Sublimaze) 50 mcg IVPUSH Q5M PRN PRN Reason: Pain Lactated Ringer's (Ringers, Lactated) 1,000 mls @ 125 mls/hr IV ASDIRECTED [facility] Stop: 12/01/17 23:00 Last Admin: 12/01/17 10:50 Dose: 125 mls/hr Cefazolin Sodium/Dextrose 2 gm (/ Premix) 50 mls @ 100 mls/hr IV Q8H [facility] Stop: 12/02/17 12:44 Last Admin: 12/02/17 01:31 Dose: Not Given Lidocaine HCl (Xylocaine-Mpf 1%) Confirm Administered Dose 0 mls @ as directed .ROUTE .STK-MED ONE Stop: 12/01/17 11:09 Lidocaine HCl (Xylocaine-Mpf 1%) Confirm Administered Dose 0 mls @ as directed .ROUTE .STK-MED ONE Stop: 12/01/17 11:11 Iodine (Iodine 2% Mild Tincture) Confirm Administered Dose 30 ml .ROUTE .STK- MED ONE Stop: 12/01/17 12:15 Last Admin: 12/01/17 16:31 Dose: 18 ml Ketorolac Tromethamine (Toradol) Confirm Administered Dose 30 mg .ROUTE .STK- MED [facility] Stop: 12/01/17 15:51 Lidocaine/Sodium Bicarbonate (Buffered Lidocaine 1% In Ns 8.4%) 0.25 ml IDERM ONETIME PRN PRN Reason: Prior to IV Start Stop: 12/01/17 18:00 Last Admin: 12/01/17 10:49 Dose: 0.25 ml Meperidine HCl (Demerol) 12.5 mg IVPUSH ONETIME PRN PRN Reason: Shivering Midazolam HCl (Versed 1 Mg/Ml) Confirm Administered Dose 2 mg .ROUTE .STK-MED ONE Stop: 12/01/17 11:09 Midazolam HCl (Versed 1 Mg/Ml) Confirm Administered Dose 2 mg .ROUTE .STK-MED ONE Stop: 12/01/17 14:39 Naloxone HCl (Narcan) 0.1 mg IVPUSH Q5M PRN PRN Reason: Oversedation Non-Formulary Medication (Teriparatide [Forteo]) 20 unit SUBCUT DAILY [facility] Ondansetron HCl (Zofran) Confirm Administered Dose 4 mg .ROUTE .STK-MED ONE Stop: 12/01/17 15:51 Oxycodone HCl (Oxycontin) 10 mg PO ONETIME [facility] Stop: 12/01/17 10:31 Last Admin: 12/01/17 14:54 Dose: 10 mg Oxycodone HCl (Oxycontin) 10 mg PO ONETIME [facility] Stop: 12/01/17 10:31 Pneumococcal 13-Valent Conj Vacc (Prevnar 13) 0.5 ml IM .ONCE ONE Stop: 12/02/17 09:47 Last Admin: 12/02/17 10:19 Dose: 0.5 ml Pregabalin (Lyrica) 50 mg PO ONETIME [facility] Stop: 12/01/17 10:31 Last Admin: 12/01/17 14:53 Dose: 50 mg Pregabalin (Lyrica) 50 mg PO ONETIME [facility] Stop: 12/01/17 10:31 Propofol (Diprivan 20 Ml) Confirm Administered Dose 600 mg .ROUTE .STK-MED ONE Stop: 12/01/17 11:09 Propofol (Diprivan 20 Ml) Confirm Administered Dose 400 mg .ROUTE .STK-MED ONE Stop: 12/01/17 14:38 Propofol (Diprivan 20 Ml) Confirm Administered Dose 200 mg .ROUTE .STK-MED ONE Stop: 12/01/17 16:16 Sodium Chloride (Saline Flush) 10 ml FLUSH ASDIRECTED PRN PRN Reason: Keep Vein Open Stop: 12/01/17 18:00 Tranexamic Acid (Cyklokapron) Confirm Administered Dose 1,000 mg .ROUTE .STK- MED ONE Stop: 12/01/17 12:15 Last Admin: 12/01/17 16:41 Dose: 1,000 mg Vancomycin HCl (Vancomycin) Confirm Administered Dose 1 gm .ROUTE .STK-MED ONE Stop: 12/01/17 12:15 Last Admin: 12/01/17 16:41 Dose: 1 gm - Exam General: Alert, Oriented, Cooperative, No Acute Distress HEENT: Pupils Equal, Pupils Reactive, EOMI, Mucous Membr. Moist/[place] Neck: Supple Lungs: Clear to Auscultation, Normal Respiratory Effort Cardiovascular: Regular Rate, Regular Rhythm GI/Abdominal Exam: Normal Bowel Sounds, Soft, Non-Tender, No Organomegaly, No Distention, No Abnormal Bruit, No Mass, Pelvis Stable (Female) Exam: Deferred Back Exam: Normal Inspection, Full Range of Motion Extremities: Normal Inspection, Normal Range of Motion, Non-Tender, No Pedal Edema, Normal Capillary Refill, Leg Pain (2-3/10, s/p LHA), Limited Range of Motion (s/p LHA) Peripheral Pulses: 1+: Posterior Tibial (L), Posterior Tibial (R), Dorsalis Pedis (L), Dorsalis Pedis (R) Skin: Warm, Dry, Intact Wound/Incisions: Healing Well, Dressing Dry and Intact Neurological: No New Focal Deficit Psy/Mental Status: Alert, Normal Affect, Normal Mood Consult PN Assessment/Plan POD#: 1 Procedures: Procedures DXA BONE DENSITY AXIAL (08/26/17) MR-STAPH DNA AMP PROBE (08/26/17) (1) Status post left hip replacement SNOMED Code(s): 980964911, 604773718, 501900712, 184029582 Code(s): Z96.642 - PRESENCE OF LEFT ARTIFICIAL HIP JOINT Priority: High Current Visit: Yes (2) Osteoarthritis of left hip SNOMED Code(s): 137860255444035 Code(s): M16.12 - UNILATERAL PRIMARY OSTEOARTHRITIS, LEFT HIP Priority: High Current Visit: Yes Qualifiers: Osteoarthritis type: unspecified Qualified Code(s): M16.12 - Unilateral primary osteoarthritis, left hip Problem List Initiated/Reviewed/Updated: Yes Plan: I/P: Acute: S/P left total hip arthroplasty - post-operative day 1 -DVT prophylaxis and pain management per primary care team -PT/OT -IS/RT -Monitor oxygen saturation -Titrate oxygen as needed -Vital signs stable -Monitor labs -Pre-operative Hgb was 15.5-->12.3 Osteoarthritis of Left hip -Pain management per primary care team Chronic: Hyperprolactinemia s/p pituitary tumor resection HLD Tobacco Use Vit D Deficiency Osteoarthritis Plan: CM for discharge planning GI prophylaxis: Pepcid DVT/PE prophylaxis: SRINI avendaño, SCD, Xaralto Home medications as indicated Other orders as listed above Routine AM labs She is a full code. Her PCP is Ronald Valera. Thank you for allowing us to participate in the care of this patient!! From a hospital standpoint, this patient is clear for discharge.
--- NOTE | 2017-12-04 15:55 | PCM.DCSUM1 ---
Discharge Summary - Hospital Course Brief History: Nazanin is a 62 yo female who underwent left AYLIN with Dr. Lockett on 12-01-2017. The procedure was completed under spinal anesthesia. The pt tolerated the procedure well and was admitted to the Medical-Surgical Unit. Medical management was provided by the Hospitalist service. The pt's Hospital course was uneventful. The pt's Hgb on POD#1 was 12.3. On POD#1, Xarelto 10mg PO daily was initiated for VTE prophylaxis. SCDs and TEDs were also ordered. A Mepilex dressing was placed at the incision site at the time of surgery and remained clean and dry. The pt participated in P.T. and O.T. and progressed well. She followed the AYLIN precautions. The pt was allowed to WBAT. On POD#1 , the pt was deemed appropriate to discharge to home with her family. - Discharge Data Discharge Date: 12/02/17 Discharge Disposition: Home, Self-Care 01 Condition: Good - Patient Summary/Data Consults: Consultations 12/01/17 07:09 OT Evaluation and Treatment [CONS] Routine PT Evaluation and Treatment [CONS] Routine 12/01/17 18:22 Consult to Physician [CONS] Routine - Patient Instructions Diet: Usual Diet as Tolerated Activity: Apply Ice, As Tolerated, Elevate Extremity, Full Weight Bearing Activity, Other: Follow the total hip precautions. Driving: Do Not Drive Showering/Bathing: May Shower Showering/Bathing, Other: Do not soak in a tub, pool, whirlpool. Wound/Incision Care: Keep Operative Site/Wound Site Clean and Dry, Do NOT Change Dressing Notify Provider of: Fever, Increased Pain, Swelling and Redness, Drainage, Nausea and/or Vomiting Other/Special Instructions: Please get up and moving around every hour while awake. This helps to prevent blood clots. Please use your walker and have help with mobility as needed. Please take the Xarelto blood thinner medication daily. Please complete the exercises you were instructed during your Hospital stay. Schedule for physical therapy. Use the pain medication as needed. The medication may cause drowsiness and constipation. Contact your primary care provider for instructions if you are constipated. You may use a stool softener like docusate sodium or Colace 100mg twice daily and/or a laxative like Miralax daily for constipation. Increase your water and fiber intake while you are using the pain medication. Please try to WEAN from use of the pain medication as soon as able. Wear the SRINI hose during the day and you may remove these at night. Elevate the limb to decrease swelling. Place ice to the area often. Place a towel between your skin and the blue pad. Use the incentive spirometer often. Take deep breaths throughout the day. Increase your protein intake while you are healing. If you have diabetes, please closely monitor your blood sugars and notify your primary care provider with abnormal values. Call the Clinic with questions or concerns - [phone]. - Discharge Plan Prescriptions/Med Rec: Acetaminophen/oxyCODONE [Percocet 325-5 MG] 1 - 2 tab PO Q6H PRN #60 tablet PRN Reason: Pain Rivaroxaban [Xarelto] 10 mg PO DAILY #35 tablet Home Medications: Home Meds Acetaminophen [Acetaminophen Extra Strength] 500 mg PO Q6H PRN 11/27/17 [History ] Calcium Carbonate [Oyster Shell Calcium] 500 mg PO BID 11/27/17 [History] Cholecalciferol (Vitamin D3) [Vitamin D3] 5,000 unit PO DAILY 11/27/17 [History] Cyanocobalamin (Vitamin B12) [Vitamin B12] 1,000 mcg PO DAILY 11/27/17 [History] Fluticasone Propionate [Flovent] 2 spray IH DAILY 11/27/17 [History] Teriparatide [Forteo] 20 unit SUBCUT DAILY 11/27/17 [History] Acetaminophen/oxyCODONE [Percocet 325-5 MG] 1 - 2 tab PO Q6H PRN #60 tablet 11/14 [Rx] Bisacodyl [Dulcolax] 5 mg PO DAILY PRN tablet 12/02/17 [Rx] Docusate Sodium [Colace] 100 mg PO BID cap 12/02/17 [Rx] Famotidine [Pepcid] 20 mg PO Q12H tablet 12/02/17 [Rx] Magnesium Hydroxide [Milk of Magnesia] 30 ml PO BID PRN cup 12/02/17 [Rx] Rivaroxaban [Xarelto] 10 mg PO DAILY #35 tablet 12/02/17 [Rx] Sennosides [Senna] 8.6 mg PO BID PRN tablet 12/02/17 [Rx] Referrals: Renetta Grimm PA-C [Physician Controls Technician] - (Please follow up with Renetta Grimm on 12/09/17 at 1045, and a second follow up on 12/15/17 at 1115. ) - Patient Data Vitals - Most Recent: Last Vital Signs Temp 98.8 F 12/02/17 08:03 Pulse 52 L 12/02/17 08:03 Resp 18 12/02/17 08:03 BP 130/82 12/02/17 08:03 Pulse Ox 95 12/02/17 08:03 Weight - Most Recent: 125 lb 1.6 oz Med Orders - Current: Current Medications Discontinued Medications Acetaminophen (Tylenol) 975 mg PO ONETIME [facility] Stop: 12/01/17 10:31 Last Admin: 12/01/17 14:54 Dose: 975 mg Acetaminophen (Tylenol) 975 mg PO ONETIME [facility] Stop: 12/01/17 10:31 Aspirin (Ecotrin) 325 mg PO BID [facility] Bisacodyl (Dulcolax) 5 mg PO DAILY PRN PRN Reason: Constipation Bupivacaine HCl (Sensorcaine-Mpf 0.75%) Confirm Administered Dose 30 ml .ROUTE .STK-MED ONE Stop: 12/01/17 11:09 Bupivacaine HCl (Marcaine 0.25%) Confirm Administered Dose 30 ml .ROUTE .STK- MED ONE Stop: 12/01/17 12:15 Last Admin: 12/01/17 16:40 Dose: 30 ml Calcium Carbonate/Glycine (Tums) 500 mg PO BID [facility] Last Admin: 12/02/17 09:04 Dose: 500 mg Cefazolin Sodium (Ancef) Confirm Administered Dose 2 gm .ROUTE .STK-MED ONE Stop: 12/01/17 11:11 Last Admin: 12/01/17 16:35 Dose: 2 gm Cefazolin Sodium (Ancef) Confirm Administered Dose 2 gm .ROUTE .STK-MED ONE Stop: 12/01/17 12:15 Cefazolin Sodium (Ancef) Confirm Administered Dose 2 gm .ROUTE .STK-MED ONE Stop: 12/01/17 14:38 Cholecalciferol (Vitamin D3) 5,000 unit PO DAILY [facility] Last Admin: 12/02/17 09:02 Dose: 5,000 unit Morphine Sulfate 8 mg/Epinephrine HCl 0.3 mg/Cefuroxime Sodium 750 mg/Ketorolac Tromethamine 30 mg/Sodium Chloride 27.9 ml 0 mg .XX ONETIME ONE Stop: 12/01/17 13:31 Last Admin: 12/02/17 01:29 Dose: Not Given Cyanocobalamin (Vitamin B12) 1,000 mcg PO DAILY [facility] Last Admin: 12/02/17 09:03 Dose: 1,000 mcg Cyclobenzaprine HCl (Flexeril) 10 mg PO TID PRN PRN Reason: Spasms Docusate Sodium (Colace) 100 mg PO BID [facility] Last Admin: 12/02/17 09:04 Dose: 100 mg Famotidine (Pepcid) 20 mg PO Q12H [facility] Last Admin: 12/02/17 09:03 Dose: 20 mg Fentanyl (Sublimaze) Confirm Administered Dose 100 mcg .ROUTE .STK-MED ONE Stop: 12/01/17 14:39 Fentanyl (Sublimaze) 50 mcg IVPUSH Q5M PRN PRN Reason: Pain Hydromorphone HCl (Dilaudid) 0.2 mg IVPUSH Q2H PRN PRN Reason: breakthrough pain Lactated Ringer's (Ringers, Lactated) 1,000 mls @ 125 mls/hr IV ASDIRECTED [facility] Stop: 12/01/17 23:00 Last Admin: 12/01/17 10:50 Dose: 125 mls/hr Cefazolin Sodium/Dextrose 2 gm (/ Premix) 50 mls @ 100 mls/hr IV Q8H [facility] Stop: 12/02/17 12:44 Last Admin: 12/02/17 01:31 Dose: Not Given Lidocaine HCl (Xylocaine-Mpf 1%) Confirm Administered Dose 0 mls @ as directed .ROUTE .STK-MED ONE Stop: 12/01/17 11:09 Lidocaine HCl (Xylocaine-Mpf 1%) Confirm Administered Dose 0 mls @ as directed .ROUTE .STK-MED [facility] Stop: 12/01/17 11:11 Cefazolin Sodium/Dextrose 2 gm (/ Premix) 50 mls @ 100 mls/hr IV Q8H [facility] Stop: 12/02/17 14:29 Last Admin: 12/02/17 06:10 Dose: 100 mls/hr Iodine (Iodine 2% Mild Tincture) Confirm Administered Dose 30 ml .ROUTE .STK- MED ONE Stop: 12/01/17 12:15 Last Admin: 12/01/17 16:31 Dose: 18 ml Ketorolac Tromethamine (Toradol) 15 mg IVPUSH Q6H PRN PRN Reason: Pain Ketorolac Tromethamine (Toradol) Confirm Administered Dose 30 mg .ROUTE .STK- MED ONE Stop: 12/01/17 15:51 Lidocaine/Sodium Bicarbonate (Buffered Lidocaine 1% In Ns 8.4%) 0.25 ml IDERM ONETIME PRN PRN Reason: Prior to IV Start Stop: 12/01/17 18:00 Last Admin: 12/01/17 10:49 Dose: 0.25 ml Magnesium Hydroxide (Milk Of Magnesia) 30 ml PO BID PRN PRN Reason: Constipation Meperidine HCl (Demerol) 12.5 mg IVPUSH ONETIME PRN PRN Reason: Shivering Midazolam HCl (Versed 1 Mg/Ml) Confirm Administered Dose 2 mg .ROUTE .STK-MED ONE Stop: 12/01/17 11:09 Midazolam HCl (Versed 1 Mg/Ml) Confirm Administered Dose 2 mg .ROUTE .STK-MED ONE Stop: 12/01/17 14:39 Mometasone Furoate (Asmanex Hfa 200mcg) 0 gm INH BID [facility] Last Admin: 12/02/17 10:28 Dose: Not Given Naloxone HCl (Narcan) 0.1 mg IVPUSH Q5M PRN PRN Reason: Oversedation Non-Formulary Medication (Teriparatide [Forteo]) 20 unit SUBCUT DAILY [facility] Ondansetron HCl (Zofran) 4 mg IVPUSH Q6H PRN PRN Reason: Nausea/Vomiting Ondansetron HCl (Zofran) Confirm Administered Dose 4 mg .ROUTE .STK-MED ONE Stop: 12/01/17 15:51 Ondansetron HCl (Zofran) 4 mg IVPUSH ONETIME PRN PRN Reason: Nausea/Vomiting Oxycodone HCl (Oxycontin) 10 mg PO ONETIME [facility] Stop: 12/01/17 10:31 Last Admin: 12/01/17 14:54 Dose: 10 mg Oxycodone HCl (Oxycontin) 10 mg PO ONETIME [facility] Stop: 12/01/17 10:31 Oxycodone/Acetaminophen (Percocet 325-5 Mg) 1 - 2 tab PO Q4H PRN PRN Reason: Pain Last Admin: 12/02/17 06:11 Dose: 2 tab Pneumococcal 13-Valent Conj Vacc (Prevnar 13) 0.5 ml IM .ONCE ONE Stop: 12/02/17 09:47 Last Admin: 12/02/17 10:19 Dose: 0.5 ml Pregabalin (Lyrica) 50 mg PO ONETIME [facility] Stop: 12/01/17 10:31 Last Admin: 12/01/17 14:53 Dose: 50 mg Pregabalin (Lyrica) 50 mg PO ONETIME [facility] Stop: 12/01/17 10:31 Propofol (Diprivan 20 Ml) Confirm Administered Dose 600 mg .ROUTE .STK-MED ONE Stop: 12/01/17 11:09 Propofol (Diprivan 20 Ml) Confirm Administered Dose 400 mg .ROUTE .STK-MED ONE Stop: 12/01/17 14:38 Propofol (Diprivan 20 Ml) Confirm Administered Dose 200 mg .ROUTE .STK-MED ONE Stop: 12/01/17 16:16 Rivaroxaban (Xarelto) 10 mg PO DAILY [facility] Last Admin: 12/02/17 09:04 Dose: 10 mg Senna (Senna) 8.6 mg PO BID PRN PRN Reason: Constipation Sodium Chloride (Saline Flush) 10 ml FLUSH ASDIRECTED PRN PRN Reason: Keep Vein Open Stop: 12/01/17 18:00 Tranexamic Acid (Cyklokapron) Confirm Administered Dose 1,000 mg .ROUTE .STK- MED ONE Stop: 12/01/17 12:15 Last Admin: 12/01/17 16:41 Dose: 1,000 mg Vancomycin HCl (Vancomycin) Confirm Administered Dose 1 gm .ROUTE .STK-MED ONE Stop: 12/01/17 12:15 Last Admin: 12/01/17 16:41 Dose: 1 gm
--- NOTE | 2017-12-08 06:58 | PCM.OPNOTE ---
- General Post-Op/Procedure Note Date of Surgery/Procedure: 12/01/17 Operative Procedure(s): left total hip arthroplasty Pre Op Diagnosis: left hip osteoarthrosis Post-Op Diagnosis: Same Anesthesia Technique: Local, MAC, Spinal Primary Surgeon: Reymundo Lockett Anesthesia Provider: Jason West Hip Hop Artist: Renetta Grimm Hip Hop Artist: Lilly Farris EBRafat in mLs: 200 Complications: None Condition: Good Free Text/Narrative:: size 3 femur size 52 cup
--- NOTE | 2017-12-08 09:04 | OR ---
DATE OF OPERATION: 12/01/2017 SURGEON: Reymundo Lockett MD OPERATION PERFORMED: Left total hip arthroplasty. PREOPERATIVE DIAGNOSIS: Left hip osteoarthrosis. POSTOPERATIVE DIAGNOSIS: Left hip osteoarthrosis. ANESTHESIA TECHNIQUE: Local MAC with spinal. ANESTHESIA PROVIDER: Jason West. COMPUTER SYSTEMS TECHNOLOGY INSTRUCTOR: 1. Renetta Grimm PA-C. 2. Lilly Farris LPN. ESTIMATED BLOOD LOSS: 200 mL. COMPLICATIONS: None. CONDITION: Stable. IMPLANTS: 1. [place] size 3 Accolate II femur. 2. Joey size 52 mm solid Tritanium acetabular cup. 3. [place] size 36 mm +0 femoral head. DESCRIPTION OF PROCEDURE: The patient was identified in the preop holding area. Proper site was marked and identified by the surgeon. The patient was taken back to the operating theater, where after adequate anesthesia, the patient was placed in a right lateral decubitus position. Axillary roll was placed. All bony prominences were well-padded. Pegs were then placed and well-padded. The patient's gluteal fold was parallel to the floor. Left hip was then sterilely prepped and draped in the usual sterile fashion. OR time-out was performed. The patient received 2 g IV Ancef. At this time, standard incision was made, centered over the greater trochanter. This was taken down to the IT band and gluteal fascia which was incised along the incisional length. The short external rotators were identified. Takedown of the short external rotators was done from the level of the piriformis down to the level of the lesser trochanter. Hip was then dislocated. Neck cut was then completed. Anterior and posterior acetabular retractors were then placed. Then, starting with a 44 reamer, I was able to ream up to a 52 which was found to have good adequate bite and fixation with the trial. At this time, a 52 mm Tritanium acetabular cup was then impacted into place, in roughly 20 to 30 degrees of anteversion and 45 degrees of abduction. At this time, the 36 mm flat polyethylene liner was impacted into place. Attention was turned to the femur. A box chisel was used out laterally. Starter awl was placed down the canal. Starting with the 0 broach, I was able to broach up to a size 2 which was found to be rotationally and vertically stable. A +0 was trialed and was found to have adequate jain of leg lengths and stable throughout range of motion. At this time, size 3 Accolate stem was impacted into place and a 36 +0 head was impacted into place. At this time, the hip was relocated and two #5 Ethibond sutures used for closure of the short external rotators and capsule; 1 L dilute Betadine solution was irrigated through the hip along with 3 L of pulse lavage irrigation with Ancef. Topical tranexamic acid as well as vancomycin powder was placed; #2 barbed suture was used for closure of the IT band and gluteal fascia, 2-0 Vicryl was used subcutaneously, and Prineo was used for the skin. The patient had a sterile soft dressing applied and was sent to the PACU in stable condition. ANESTHESIA: MMODAL /[id number]
== END 2017-12-02 11:00 | disposition home or self-care (01) | DRG 470 ==
LOC: JD.SDS 10:13 → JD.MS 17:01
PROVIDERS: ADMIT Orthopaedic Surgery; ATTEND Orthopaedic Surgery
PROC: 3E0U029 Introduction of Other Anti-infective into Joints, Open Approach (ICD-10-PCS; principal; 2017-12-01)
PROC: 0SRB0JZ Replacement of Left Hip Joint with Synthetic Substitute, Open Approach (ICD-10-PCS; principal; 2017-12-01)
DX: M16.12 Unilateral primary osteoarthritis, left hip (principal); E22.1 Hyperprolactinemia; I25.10 Atherosclerotic heart disease of native coronary artery without angina pectoris; E55.9 Vitamin D deficiency, unspecified; F17.210 Nicotine dependence, cigarettes, uncomplicated; E78.5 Hyperlipidemia, unspecified; Z98.890 Other specified postprocedural states; M81.0 Age-related osteoporosis without current pathological fracture; Z79.899 Other long term (current) drug therapy
CPT/HCPCS: 01214; 36415; 73501-26-LT; 73501-LT; 80053; 85027; 86850; 86900; 86901; 87641; 90670; 97110-GP; 97116-GP; 97161-GP; 97165-GO; 97535-GO; A9270-GY; C1776; G0009; J0171; J0690; J0697; J1885; J2001; J2250; J2270; J2405; J2704; J3010; J3370; J3490; J7120